=== PATIENT | female | born 1955 | race Caucasian/White ===

== ENCOUNTER 2019-11-21 10:31 | Outpatient (RCR) | payer BC, OTHER ==
[~2019-11-21 10:31] MED LIST: ACHYD1T PO; CALC-196 PO; NITR100C3 PO; TRIA1CAP PO
== END 2019-12-13 | disposition home or self-care (01) ==
DX: M54.2 Cervicalgia (principal)

== ENCOUNTER 2023-01-07 10:12 | Outpatient (CLI) | payer OTHER ==
[~2023-01-07] VITALS: Ht 162.6 cm; Wt 59.0 kg
[2023-01-10] MEDS ORDERED: ROSU5TAB13 PO (15:11)
== END 2023-01-10 15:14 | disposition home or self-care (01) ==
LOC: PREOP 10:12
PROVIDERS: ATTEND Specialist
DX: Z01.818 Encounter for other preprocedural examination (principal)

== ENCOUNTER 2023-01-14 08:54 | Day surgery (SDC) | payer MEDICAID, OTHER ==
[~2023-01-14] VITALS: Ht 162 cm; Wt 59.0 kg
[~2023-01-14 08:54] MED LIST changes: +ROSU5TAB13 PO
[2023-01-14 09:00] VITALS: BP 122/92
[2023-01-14] MEDS: TETRACAINE 0.5% OPHTH SOLN 5 ML BTL OU PRN ×4 (09:30→09:41)
[2023-01-14] MEDS ORDERED: POVIDONE IODINE OPHTH SOLN 5% 30 ML OP ONE (09:30)
[2023-01-14] MEDS ORDERED: LIDOCAINE PF 1% 2 ML VIAL IR PRN (09:30)
[2023-01-14] MEDS ORDERED: TIMOLOL 0.5% (CATARACTS) 0.3 ML BTL OU PRN (09:30)
[2023-01-14] MEDS ORDERED: MOXIFLOXACIN OPHTH SOLN 5 MG/ML 0.5 ML SYRINGE OP ONE (09:30)
[2023-01-14] MEDS: PHENYLEPHRINE 10% OPHTH SOLN 5 ML BTL OU SCH ×3 (09:41→09:47)
[2023-01-14] MEDS: TROPICAMIDE 1% OPH SOLN (MYDRIACYL) 15 ML BTL OP SCH ×3 (09:41→09:47)
--- NOTE | 2023-01-14 10:17 | Ophthalmologist Pre-Op Note ---
Pre-Operative Progress Note H&P Reviewed The H&P was reviewed, patient examined and no changes noted. Date H&P Reviewed: Jan 14, 2023 Time H&P Reviewed: 10:17 Pre-Op Dx Cataract, Left Eye RUTH GEORGES MD Jan 14, 2023 10:17
[2023-01-14] MEDS ORDERED: MIDAZOLAM INJ 2 MG/2 ML VIAL ONE (10:21)
--- NOTE | 2023-01-14 10:45 | Ophthalmology Operative Report ---
Cataract removal/placement IOL PREOPERATIVE DIAGNOSIS: Cataract Left Eye POSTOPERATIVE DIAGNOSIS: Cataract Left Eye PROCEDURE: Cataract removal and placement of posterior chamber implant, left eye SURGEON: Brandon Georges ANESTHESIA: Topical with sedation COMPLICATIONS: None ESTIMATED BLOOD LOSS: Minimal DESCRIPTION OF PROCEDURE: After proper informed consent was obtained, the patient, a [id number] female, was taken to the Operating Room and the left eye was anesthetized with tetracaine. The left eye was then prepped and draped in the usual manner. A wire lid speculum was placed. A paracentesis was made at the left hand position. Preservative free lidocaine was injected into the anterior chamber followed by viscoelastic. A clear corneal incision was made in the temporal position. A capsulorrhexis was preformed and the central nuclear and cortical material were removed. The posterior capsule was polished and an Meir 20.0 CNA0T0 was placed into the capsular bag. The residual viscoelastic was aspirated and balanced saline solution was injected into the anterior chamber. Moxifloxacin was injected into the anterior chamber. The wound was checked and found to be water tight. The patient tolerated the procedure well without complications. BRANDON GEORGES MD Jan 14, 2023 10:45
--- NOTE | 2023-01-14 14:30 | Anesthesia-General Post-Op ---
MAC Patient Condition Mental Status/LOC: Same as Preop Cardiovascular: Satisfactory Nausea/Vomiting: Absent Respiratory: Satisfactory Pain: Controlled Complications: Absent Post Op Complications Complications None Follow Up Care/Instructions Patient Instructions None needed. Anesthesiology Discharge Order Discharge Order Patient is doing well, no complaints, stable vital signs, no apparent adverse anesthesia problems. No complications reported per nursing. JANELLE WELLS CRNA Jan 14, 2023 14:30
== END 2023-01-14 11:03 ==
LOC: SDC 08:54
PROVIDERS: ATTEND Specialist
DX: H26.9 Unspecified cataract (principal)
CPT/HCPCS: 66984; V2632